=== PATIENT | male | born 1980 | race Caucasian/White ===

== ENCOUNTER 2022-03-20 23:26 | Emergency (ER) | payer OTHER ==
[~2022-03-20] VITALS: Ht 182.9 cm; Wt 86.4 kg
[~2022-03-20 23:26] MED LIST: NOCURR
[2022-03-20 23:33] VITALS: BP 130/76
== END 2022-03-21 01:17 | disposition left against medical advice (07) ==
LOC: EMS 23:28
DX: Z53.21 Procedure and treatment not carried out due to patient leaving prior to being seen by health care provider (principal)

== ENCOUNTER 2023-10-24 19:46 | Emergency (ER) | payer OTHER ==
[~2023-10-24] VITALS: Ht 175.3 cm; Wt 80.9 kg
[2023-10-24 19:49] VITALS: TEMP 97.9
[2023-10-24] MEDS: LORazepam 1 MG TABLET PO ONE (23:36)
[2023-10-25 00:37] LABS: BASOPHILS % (AUTO) 0.6 % (0.0-2.0); EOSINOPHILS % (AUTO) 2.3 % (1.0-6.0); HEMATOCRIT 41.8 % (41-53); HEMOGLOBIN 14.1 g/dL (13.5-17.5); LYMPHOCYTES # (AUTO) 3.6 K/uL (1.0-4.8); LYMPHOCYTES % (AUTO) 45.3 % (22.0-44.0); MEAN CORPUSCULAR HEMOGLOBIN 29.9 pg (26.0-34.0); MEAN CORPUSCULAR HGB CONC 33.8 G/dL (31.0-37.0); MEAN CORPUSCULAR VOLUME 89 fL (80-100); MONOCYTES # (AUTO) 0.5 K/uL (0.1-1.0); MONOCYTES % (AUTO) 6.1 % (2.0-9.0); NEUTROPHILS # (AUTO) 3.6 K/uL (1.8-7.7); NEUTROPHILS % (AUTO) 45.7 % (40.0-70.0); PLATELET COUNT (AUTO) 257 K/uL (150-450); RED BLOOD CELL COUNT(AUTO) 4.72 MIL/uL (4.50-5.90); RED CELL DISTRIBUTION WIDTH 13.5 % (11.5-14.5)
[2023-10-25 00:41] LABS: ANION GAP 9 mmol/L (8-16); CALCIUM, TOTAL 9.3 mg/dL (8.8-10.5); CARBON DIOXIDE 30 mmol/L (22-29); CHLORIDE 102 mmol/L (98-107); CREATININE 1.03 mg/dL (0.60-1.30); GLOMERULAR FILTR. RATE CALC > 60 mL/min (>60); GLUCOSE,RANDOM 116 mg/dL (70-110); POTASSIUM 4.1 mmol/L (3.5-5.1); SODIUM SERUM 141 mmol/L (136-145); UREA NITROGEN, BLOOD 19 mg/dL (7-18)
[2023-10-25 00:47] LABS: ALANINE AMINOTRANSFERASE 34 U/L (12-78); ALBUMIN 3.9 g/dL (3.4-5.0); ALKALINE PHOSPHATASE 72 U/L (46-116); ASPARTATE AMINOTRANSFERASE 23 U/L (15-37); BILIRUBIN,TOTAL 0.3 mg/dL (0.1-1.0); TOTAL PROTEIN, SERUM 7.8 g/dL (6.4-8.2)
[2023-10-25 01:00] VITALS: BP 142/97; PULSE 71; RESP 16
[2023-10-25 01:23] LABS: TROPONIN I-HIGH SENSITIVITY 5 ng/L (<76)
[2023-10-25] MEDS ORDERED: DIPH50CA37 PO (01:28)
[2023-10-25] MEDS ORDERED: LORA-1000 PO (01:28)
== END 2023-10-25 01:52 | disposition home or self-care (01) ==
LOC: EMS 19:48
DX: F41.9 Anxiety disorder, unspecified (principal); G47.00 Insomnia, unspecified
CPT/HCPCS: 80053; 84484; 85025; 99283

== ENCOUNTER 2024-09-19 15:15 | Emergency (ER) | payer OTHER ==
[~2024-09-19] VITALS: Ht 175.3 cm; Wt 81.8 kg
[~2024-09-19 15:15] MED LIST changes: +DIPH50CA37 PO; +LORA1TAB25 PO
[2024-09-19 15:27] VITALS: BP 124/72; PULSE 75; RESP 17; TEMP 97.9; O2SAT 96
[2024-09-19 16:12] LABS: BASOPHILS % (AUTO) 0.5 % (0.0-2.0); EOSINOPHILS % (AUTO) 0.6 % (1.0-6.0); HEMATOCRIT 40.2 % (41-53); HEMOGLOBIN 13.6 g/dL (13.5-17.5); LYMPHOCYTES # (AUTO) 2.7 K/uL (1.0-4.8); LYMPHOCYTES % (AUTO) 34.9 % (22.0-44.0); MEAN CORPUSCULAR HEMOGLOBIN 29.3 pg (26.0-34.0); MEAN CORPUSCULAR HGB CONC 33.9 G/dL (31.0-37.0); MEAN CORPUSCULAR VOLUME 86 fL (80-100); MONOCYTES # (AUTO) 0.6 K/uL (0.1-1.0); MONOCYTES % (AUTO) 7.5 % (2.0-9.0); NEUTROPHILS # (AUTO) 4.3 K/uL (1.8-7.7); NEUTROPHILS % (AUTO) 56.5 % (40.0-70.0); PLATELET COUNT (AUTO) 262 K/uL (150-450); RED BLOOD CELL COUNT(AUTO) 4.66 MIL/uL (4.50-5.90); RED CELL DISTRIBUTION WIDTH 13.3 % (11.5-14.5); WHITE BLOOD COUNT (AUTO) 7.7 K/uL (4.5-11.0)
[2024-09-19 16:15] LABS: ANION GAP 8 mmol/L (8-16); CALCIUM, TOTAL 9.7 mg/dL (8.8-10.5); CARBON DIOXIDE 31 mmol/L (22-29); CHLORIDE 103 mmol/L (98-107); CREATININE 1.03 mg/dL (0.60-1.30); GLOMERULAR FILTR. RATE CALC > 60 mL/min (>60); GLUCOSE,RANDOM 93 mg/dL (70-110); SODIUM SERUM 142 mmol/L (136-145); UREA NITROGEN, BLOOD 12 mg/dL (7-18)
[2024-09-19 16:24] LABS: TROPONIN I-HIGH SENSITIVITY 5 ng/L (<76)
== END 2024-09-19 17:07 | disposition home or self-care (01) ==
LOC: EMS 15:15
DX: R00.2 Palpitations (principal); F32.A Depression, unspecified
CPT/HCPCS: 71045; 80048; 84484; 85025; 93005; 99285; 36415-L1; 36415-TC

== ENCOUNTER 2025-06-10 16:17 | Emergency (ER) | payer OTHER ==
[~2025-06-10] VITALS: Ht 175.3 cm; Wt 82.0 kg
[2025-06-10 16:23] VITALS: TEMP 97.8
[2025-06-10 19:42] LABS: PLATELET COUNT (AUTO) 243 K/uL (150-450); RED BLOOD CELL COUNT(AUTO) 4.92 MIL/uL (4.50-5.90); RED CELL DISTRIBUTION WIDTH 14.2 % (11.5-14.5); WHITE BLOOD COUNT (AUTO) 7.8 K/uL (4.5-11.0)
[2025-06-10 19:44] LABS: CALCIUM, TOTAL 9.4 mg/dL (8.8-10.5); CREATININE 1.23 mg/dL (0.60-1.30); GLOMERULAR FILTR. RATE CALC > 60 mL/min (>60); GLUCOSE,RANDOM 103 mg/dL (70-110); SODIUM SERUM 141 mmol/L (136-145); UREA NITROGEN, BLOOD 14 mg/dL (7-18)
[2025-06-10 19:52] LABS: TROPONIN I-HIGH SENSITIVITY 5 ng/L (<76)
[2025-06-10 20:00] VITALS: BP 117/81; PULSE 70; RESP 18; O2SAT 99
== END 2025-06-10 23:07 | disposition home or self-care (01) ==
LOC: EMS 16:17
DX: R07.89 Other chest pain (principal); M79.602 Pain in left arm; F32.A Depression, unspecified; Z79.899 Other long term (current) drug therapy
CPT/HCPCS: 80048; 84484; 85025; 93005; 99284